=== PATIENT | female | born 1975 | race Caucasian/White ===

== ENCOUNTER → 2018-03-06 16:08 | Outpatient (CLI) | payer BC, SELFPAY ==
--- NOTE | 2018-03-06 16:18 | XR_ITS ---
XR forearm RT 2V HISTORY: Pain following injury ITS.REASON: RT ARM PAIN,FALL,TINGLING ORDERING PHYSICIAN: Pretty Bryant PATIENT AGE: 42 years COMPARISON: None FINDINGS: No obvious fracture, dislocation, lytic change or blastic change. Normal mineralization. Unremarkable soft tissues IMPRESSION: Negative forearm
--- NOTE | 2018-03-06 16:18 | XR_ITS ---
XR hand RT min 3V HISTORY: ITS.REASON: RT ARM PAIN,FALL,TINGLING ORDERING PHYSICIAN: Pretty Bryant PATIENT AGE: 42 years COMPARISON: None FINDINGS: No fracture or dislocation. No lytic or blastic change. There is normal mineralization.. The joint spaces are well-preserved. No significant degenerative/arthritic changes. No erosive changes evident.. IMPRESSION: Negative, no acute finding
--- NOTE | 2018-03-06 16:18 | XR_ITS ---
XR elbow RT min 3V HISTORY: Pain following injury ITS.REASON: RT ARM PAIN,FALL,TINGLING ORDERING PHYSICIAN: Pretty Bryant PATIENT AGE: 42 years COMPARISON: None FINDINGS: BONY STRUCTURES: No fracture or dislocation. No lytic or blastic change. Normal mineralization. SOFT TISSUES: Unremarkable. No radio opaque foreign bodies. No displaced fat pad. JOINT SPACE: Well-preserved. No significant arthritic changes evident. IMPRESSION: Negative elbow.
== END ==
PROVIDERS: PCP Physician Assistant; Visit Provider Physician Assistant
DX: M25.521 Pain in right elbow (principal); M79.631 Pain in right forearm; M79.641 Pain in right hand
CPT/HCPCS: 73080; 73090; 73130

== ENCOUNTER → 2018-03-10 15:12 | Outpatient (CLI) | payer BC, SELFPAY ==
[2018-03-10 15:48] LABS: Monoscreen (Rapid) Negative (Negative)
[2018-03-10 15:49] LABS: Basophils % 0.1 % (0.1-2.0); Eosinophils % 0.5 % (0.1-12.0); Hematocrit 38.4 % (37.0-47.0); Hemoglobin 13.1 g/dL (12.2-16.2); Lymphocytes # 3.7 K/mm3 (0.7-4.5); Lymphocytes % 38.7 % (10-50); Mean Corpuscular Hemoglobin 30.3 pg (27.0-31.2); Mean Corpuscular Volume 89.1 fl (81-99); Mean Platelet Volume 7.4 fl (7.4-10.4); Monocytes # 0.5 K/mm3 (0.1-1.0); Monocytes % 5.2 % (1.7-9.3); Neutrophils # 5.2 K/mm3 (1.8-7.8); Neutrophils % 55.4 % (37.0-80.0); Platelet Count 369 K/mm3 (142-424); Red Blood Count 4.31 M/mm3 (4.20-5.40); Red Cell Distribution Width 13.1 % (11.5-17.5); White Blood Count 9.4 K/mm3 (4.8-10.8)
[2018-03-12 15:18] LABS: Peripheral Smear Review Scanned Result
[2018-03-14 16:12] LABS: Histoplasma Antibody Quant Negative (Neg:<1:1)
== END ==
PROVIDERS: PCP Physician Assistant; Visit Provider Otolaryngology
DX: R22.1 Localized swelling, mass and lump, neck (principal)
CPT/HCPCS: 36415; 85025; 86318; 86698

== ENCOUNTER → 2018-03-12 12:45 | Outpatient (CLI) | payer BC, SELFPAY ==
--- NOTE | 2018-03-12 12:53 | NVE_ITS ---
Venous Exam Indications: 729.81 Swelling of limb. Pt fell last week, bruising right carreon, knot mid right carreon. IMPRESSIONS 1. There is no evidence of significant Reflux. 2. No evidence of deep or superficial vein thrombosis involving the right lower extremity 3. 1.1 cm hyperechoic area seen mid right carreon in area of patient complaint. Probable hematoma or lipoma. History: Right lower extremity pain. Swelling of the right lower extremity. Right lower extremity venous duplex evaluation. Doppler flow study including spectral analysis, color and aranda scale imaging. Location: Vascular laboratory. Patient status: Outpatient. Tables: Venous flow and imaging: + +-------+ + Location Overall Flow properties + +-------+ + Right common femoral Patent Normal phasicity; spontaneous; normal augmentation; compressible + +-------+ + Right saphenofemoral junction Patent Compressible + +-------+ + Right femoral Patent Normal phasicity; spontaneous; normal augmentation; compressible + +-------+ + Right greater saphenous Patent Normal phasicity; spontaneous; normal augmentation; compressible + +-------+ + Right popliteal Patent Normal phasicity; spontaneous; normal augmentation; compressible + +-------+ + Right posterior tibial Patent Compressible + +-------+ + Right peroneal Patent Compressible + +-------+ + Right gastrocnemius Patent Compressible + +-------+ + Right soleal Patent Compressible + +-------+ + (Report amended ) Electronically signed by: Guillermo Avila [id number]
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
== END ==
PROVIDERS: PCP Physician Assistant; Visit Provider Physician Assistant
DX: M79.661 Pain in right lower leg (principal); M79.89 Other specified soft tissue disorders
CPT/HCPCS: 73590; 93971

== ENCOUNTER → 2019-02-27 13:53 | Outpatient (CLI) | payer BC, SELFPAY ==
[2019-02-27 15:28] LABS: Free T4 (Free Thyroxine) 1.01 ng/dl (0.76-1.46); Thyroid Stimulating Hormone 1.22 uIU/ml (0.358-3.740)
[2019-03-01 07:16] LABS: Thyroid Peroxidase Antibodies 9 IU/mL (0-34)
[2019-03-01 23:17] LABS: Triiodothyronine (T3) Free 3.1 pg/mL (2.0-4.4)
== END ==
PROVIDERS: Visit Provider Internal Medicine Endocrinology, Diabetes & Metabolism
DX: E07.1 Dyshormogenetic goiter (principal); R94.6 Abnormal results of thyroid function studies
CPT/HCPCS: 36415; 84439; 84443; 84481; 86376

== ENCOUNTER 2019-07-28 06:23 | Emergency (ER) | payer BC, SELFPAY ==
[2019-07-28 06:32] VITALS: BP 134/95; PULSE 110; RESP 16; TEMP 36.6; O2SAT 96; BMI 27.1
--- NOTE | 2019-07-28 06:34 | PC.NURSE ---
md at bedside to assess patient
--- NOTE | 2019-07-28 06:51 | HMH.EDALLER ---
ED Disposition Clinical Impression: Facial swelling Disposition: Home, Self-Care Condition on Discharge: Good Instructions: DI for General Allergic Reactions Additional Instructions: use meds and see pcp for follow up Prescriptions: predniSONE [Prednisone 20mg Tab] 20 mg PO BID #10 tab Prescription Printed Referrals: Pretty Bryant [Primary Care Provider] - - Critical Care Critical Care Time: No Attestation: On 07/28/19, the high probability of a clinically significant, sudden or life threatening deterioration of the following system(s) required my full and direct attention, intervention and personal management. The time I documented below is in addition to time spent performing reported procedures but includes the following listed in this critical care notation. Medical Decision Making - Medical Records Medical records reviewed: Yes: I reviewed the patient's medical records. - Julio Inquiry Pt receiving controlled substance: No Vital Signs: 07/28/19 06:32 Temperature 97.9 F Temperature Source Oral Pulse Rate [Right Brachial] 110 H Respiratory Rate 16 Blood Pressure [Right Arm] 134/95 H Blood Pressure Mean [Right Arm] 108 Blood Pressure Source [Right Arm] Automatic Cuff Blood Pressure Position [Right Arm] Sitting 02 Sat by Pulse Oximetry 96 Oxygen Delivery Method Room Air Orders (Tests/Meds): ED MEDICATIONS Discontinued Medications Generic Name Dose Route Start Last Admin Trade Name Freq PRN Reason Stop Dose Admin Dexamethasone Sodium Phosphate 8 mg 07/28/19 06:49 Decadron 4mg/Ml 1ml Vial IM 07/28/19 06:50 ONCE ONE Allergic React/Insect Bite HPI - General Chief complaint: Skin/Abscess/Foreign Body Stated complaint: eyes swelling Time Seen by Provider: 07/28/19 06:35 Mode of Arrival - ED Triage: Family Vehicle Source of Information: Patient, Medical Record Limitations: No Limitations - History of Present Illness HPI narrative: facial swelling with no fever and did not responf to otc meds complaint: facial swelling Onset (ago): day(s) Exposure: unknown Symptoms: facial swelling Treatment prior to arrival: benadryl, ice Allergies/Adverse Reactions: Allergies Allergy/AdvReac Type Severity Reaction Status Date / Time ibuprofen Allergy Severe Swelling Verified 07/28/19 06:37 of Lip/Tongue/Throat sulfamethoxazole Allergy Severe Rash Verified 07/28/19 06:37 [From Bactrim] trimethoprim [From Bactrim] Allergy Severe Rash Verified 07/28/19 06:37 Severity: moderate - Related Data Home Medications Medication Instructions Recorded Confirmed desog-e.estradiol/e.estradiol 0.15 1 tab PO DAILY 03/10/18 07/28/19 mg-0.02 mg(21)/e.estrad 0.01 mg(5) tablet loratadine 10 mg tablet 10 mg PO DAILY 03/10/18 07/28/19 Previous Rx's Medication Instructions Recorded predniSONE [Prednisone 20mg 20 mg PO BID #10 tab 07/28/19 Tab] [facility] History - Hepatitis A Screen Drug use history?: No High risk sexual behaviors?: No History of sexually transmitted infection?: No Currently employed?: No Childcare worker?: No Do you have indoor plumbing?: Yes Do you have electricity?: Yes Attestation statement:: This patient has been screened for Hepatitis A risk factors. I have reviewed the patient's past medical history: Yes Medical History: Reports:: Hyperlipidemia Other Surgeries: Yes: Other - Social History Smoking Status: Never smoker Alcohol Intake: current Alcohol Intake Frequency:: holidays/special occasions only Substance Use Type: denies use Occupational Status: employed Housing: house Household Members: spouse, children Family Hx:: No significant family history ROS Obtained: Yes All systems reviewed & no additional complaints - Constitutional Constitutional: Denies fever(s) - Eyes Eyes: Denies change in vision - ENT Ears, Nose, Mouth, and Throat: Reports as per HPI, Denies lip swelling, Denies so
[2019-07-28 06:53] VITALS: BP 141/72; PULSE 78; RESP 19; TEMP 36.6; O2SAT 99
== END 2019-07-28 07:01 | disposition home or self-care (01) ==
PROVIDERS: Emergency Provider Emergency Medicine; PCP Physician Assistant
DX: R22.0 Localized swelling, mass and lump, head (principal); Z88.2 Allergy status to sulfonamides; Z88.6 Allergy status to analgesic agent
CPT/HCPCS: 96372; 99281

== ENCOUNTER 2022-11-02 21:19 | Emergency (ER) | payer OTHER, SELFPAY ==
[2022-11-02 21:21] VITALS: BP 142/80; PULSE 89; RESP 18; TEMP 36.6; O2SAT 96; BMI 28.3
[2022-11-02 21:30] VITALS: BP 142/80; PULSE 93; O2SAT 98
[2022-11-02 21:33] VITALS: BP 148/90; PULSE 84; O2SAT 97
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
--- NOTE | 2022-11-02 21:53 | PC.NURSE ---
pt resting in bed no needs, at bs
[2022-11-02 22:01] VITALS: BP 172/111; PULSE 86; O2SAT 99
[2022-11-02 22:17] VITALS: BP 172/111; PULSE 77; RESP 19; TEMP 36.7; O2SAT 98
== END 2022-11-02 22:33 | disposition home or self-care (01) ==
PROVIDERS: Emergency Provider Emergency Medicine
DX: S71.112A Laceration without foreign body, left thigh, initial encounter (principal); W26.0XXA Contact with knife, initial encounter
CPT/HCPCS: 99282

== ENCOUNTER → 2022-12-07 08:37 | Outpatient (CLI) | payer OTHER, SELFPAY ==
[2022-12-07 09:33] LABS: Hemoglobin A1C 5.3 % (4.0-6.0)
[2022-12-07 09:51] LABS: Basophils % 0.4 % (0.1-2.0); Eosinophils # 0.1 K/mm3 (0.0-0.4); Eosinophils % 1.2 % (0.1-12.0); Hematocrit 46.8 % (37.0-47.0); Hemoglobin 14.4 g/dL (12.2-16.2); Lymphocytes # 3.1 K/mm3 (0.7-4.5); Lymphocytes % 38.1 % (10-50); Mean Corpuscular HGB Conc 30.7 g/dL (31.8-35.4); Mean Corpuscular Hemoglobin 28.6 pg (27.0-31.2); Mean Platelet Volume 9.2 fl (7.4-10.4); Monocytes # 0.5 K/mm3 (0.1-1.0); Monocytes % 6.6 % (1.7-9.3); Neutrophils # 4.4 K/mm3 (1.8-7.8); Neutrophils % 53.7 % (37.0-80.0); Platelet Count 344 K/mm3 (142-424); Red Blood Count 5.03 M/mm3 (4.20-5.40); Red Cell Distribution Width 13.2 % (11.5-17.5); White Blood Count 8.2 K/mm3 (4.8-10.8)
[2022-12-07 10:05] LABS: Alanine Aminotransferase 23 U/L (12-78); Albumin Level 4.1 g/dl (3.5-5.0); Albumin/Globulin Ratio 1.4 (1.1-1.8); Alkaline Phosphatase 83 U/L (38-126); Anion Gap 14.2 mEq/L (5-15); Aspartate Amino Transferase 27 U/L (14-36); Bilirubin,Total 0.5 mg/dl (0.2-1.3); Blood Urea Nitrogen 9 mg/dl (7-17); Calcium 8.9 mg/dl (8.4-10.2); Carbon Dioxide 27 mmol/L (22.0-30.0); Chloride 104 mmol/L (98-107); Chol/HDL Ratio 2.6 (1-3.5); Cholesterol 178 mg/dl (140-200); Estimated Glomerular Filt Rate 107 ml/min (>60); GFR (African American) 129 ML/MIN (>60); Globulin 2.9 g/dL (1.3-3.2); Glucose 98 mg/dl (74-100); HDL Cholesterol 69 mg/dl (40-60); Potassium 4.2 mmoL/L (3.5-5.1); Sodium 141 mmol/L (136-145); Triglycerides 80 mg/dl (30-150); VLDL Cholesterol 16 mg/dL (0-40)
[2022-12-07 10:17] LABS: Direct LDL Cholesterol 85.91 mg/dL (100-129)
[2022-12-07 10:22] LABS: 25-OH Vitamin D, Total 40.3 ng/mL (30-100)
[2022-12-07 10:37] LABS: Thyroid Stimulating Hormone 1.59 uIU/mL (0.465-4.68)
[2022-12-07 10:57] LABS: Vitamin B12 > 1000 pg/mL (239-931)
[2022-12-08 14:56] LABS: Insulin Level Total 5.9 uIU/mL (2.6-24.9)
== END ==
PROVIDERS: PCP Physician Assistant; Visit Provider Physician Assistant
DX: E55.9 Vitamin D deficiency, unspecified (principal); E53.8 Deficiency of other specified B group vitamins; H93.19 Tinnitus, unspecified ear; Z68.26 Body mass index [BMI] 26.0-26.9, adult
CPT/HCPCS: 36415; 80053; 80061; 82306; 82607; 83036; 83525; 84443; 85025